=== PATIENT | female | born 1955 | race Caucasian/White ===

== ENCOUNTER 2019-09-24 13:44 | Outpatient (CLI) | payer MEDICARE, SELFPAY ==
[2019-09-24 14:58] LABS: Thyroid Stimulating Hormone 1.75 uIU/mL (0.36-3.74)
== END 2019-09-24 13:45 | disposition home or self-care (01) ==
PROVIDERS: PCP Physician Assistant
DX: E03.9 Hypothyroidism, unspecified (principal)
CPT/HCPCS: 36415; 84443

== ENCOUNTER 2019-12-16 16:17 | Outpatient (CLI) | payer MEDICARE, MEDICAID, SELFPAY ==
--- NOTE | ~2019-12-16 | XR_ITS ---
EXAMINATION: XR shoulder RT min 2V DATE: 12/16/2019 16:40 INDICATION: Right shoulder pain. TECHNIQUE: 4 views of right shoulder were obtained. COMPARISON: None. FINDINGS: Bone alignment is normal. No fracture. There is mild osteoarthritis of acromioclavicular eileen int and glenohumeral joint. There is mild calcific tendinitis of the rotator cuff. IMPRESSION: 1. Mild polyarticular osteoarthritis. 2. Mild calcific tendinitis of the rotator cuff. Reviewed, dictated and finalized at location A.
[2019-12-21 20:12] LABS: Vitamin D 25 Hydroxy 43 ng/mL (30-100)
== END 2019-12-16 16:18 | disposition home or self-care (01) ==
PROVIDERS: PCP Physician Assistant
DX: E55.9 Vitamin D deficiency, unspecified (principal); M25.511 Pain in right shoulder
CPT/HCPCS: 36415; 73030; 82306

== ENCOUNTER 2020-03-17 14:38 | Emergency (ER) | payer MEDICARE, MEDICAID, SELFPAY ==
--- NOTE | ~2020-03-17 | US_ITS ---
EXAMINATION: US art doppler w lalita LEPE EXAM DATE: 03/17/2020 16:04 INDICATION: Bilateral lower extremity pain, loss of pulses. TECHNIQUE: Segmental pressures and plethysmographic and Doppler waveforms of the brachial and lower e xtremity arteries were obtained. There is no prior study for comparison. FINDINGS: Right and left brachial artery pressures of 194 mm Hg and 176 mm Hg, respectively, are concordant (no rmal difference <= 30 mmHg). RIGHT LEG: The ankle-brachial index (JEFFREY) is 0.92 (normal >= 0.9-1). The great toe pressure 88 mmHg. The lower extremity ratios, segmental pressure gradients as follows; Dorsalis pedis: 0.92 (178 mmHg). Posterior tibial: 0.85 (164 mmHg). (Normal gradients <= 20-30 mmHg between adjacent levels on the same leg or the same levels on the two legs). Arterial waveforms are biphasic proximally, monophasic PT a nd DP.. LEFT LEG: The ankle-brachial index (JEFFREY) is 0.78 (normal >= 0.9-1). The great pressure could not be visualized, no definite pulse. The lower extremity ratios, segmental pressure gradients as follows; Dorsalis pedis: 0.78 (152 mmHg). Posterior tibial: 0.75 (145 mmHg). (Normal gradients <= 20-30 mmHg between adjacent levels on the same leg or the same levels on the two legs). Arterial waveforms are monophasic throughout. IMPRESSION: 1. Right ankle-brachial index 0.92, normal. 2. Left ankle-brachial index 0.78, mildly decreased. 3. Could not obtain definite pulse in left toe. Reviewed, dictated and finalized at location A. [facility] [employer]
[2020-03-17 15:10] VITALS: BP 147/77; PULSE 100; RESP 20; TEMP 36.8; O2SAT 95
[2020-03-17 16:07] LABS: Basophils Absolute Auto 0.06 K/mm3 (0.00-0.10); Basophils Percent Auto 0.4 % (0.0-1.0); Eosinophils Absolute Auto 0.07 K/mm3 (0.02-0.50); Eosinophils Percent Auto 0.4 % (1.0-6.0); Hematocrit 37.2 % (35.0-42.0); Hemoglobin 11.8 g/dL (11.7-13.8); Immature Granulocyte Absolute 0.07 K/mm3 (0.00-0.00); Immature Granulocyte Percent A 0.4 % (0.0-0.0); Lymphocytes Absolute Auto 2.08 K/mm3 (1.10-4.50); Lymphocytes Percent Auto 13.2 % (18.0-42.0); Mean Corpuscular HGB Conc 31.7 g/dL (32.0-36.0); Mean Corpuscular Volume 88.4 fL (78.0-102.0); Mean Platelet Volume 10.2 fl (9.2-11.8); Monocytes Absolute Auto 1.94 K/mm3 (0.10-0.90); Monocytes Percent Auto 12.3 % (2.0-11.0); Neutrophils Absolute Auto 11.6 K/mm3 (1.7-7.2); Neutrophils Percent Auto 73.3 % (50.0-70.0); Platelet Count Result 355 K/mm3 (150-420); Red Blood Count 4.21 M/mm3 (4.20-5.40); Red Cell Distribution Width 14.3 % (11.6-14.4); White Blood Count 15.8 K/mm3 (4.8-10.8)
[2020-03-17 16:28] LABS: Alanine Aminotransferase 29 U/L (14-59); Albumin Level 3.4 g/dL (3.4-5.0); Alkaline Phosphatase 151 U/L (46-116); Anion Gap 8 mmol/L (8-16); Aspartate Amino Transferase 17 U/L (15-37); Bilirubin,Total 0.3 mg/dL (0.00-1.00); Blood Urea Nitrogen 18 mg/dL (7-18); Calcium 9.2 mg/dL (8.5-10.1); Carbon Dioxide 26 mmol/L (21-32); Chloride 96 mmol/L (98-108); Estimated Glomerular Filt Rate 49; Glucose 261 mg/dL (70-99); INR 0.9; Osmolality Calculated 280 mOsm/kg (285-295); Partial Thromboplastin Time 28.2 SEC (23.90-30.70); Potassium 4.5 mmol/L (3.5-5.1); Prothrombin Time 10.3 Seconds (9.50-12.10); Sodium 130 mmol/L (136-145); Total Protein 8.3 g/dL (6.4-8.2)
[2020-03-17 16:31] LABS: D Dimer 1.13 mg/L (0.19-0.50)
--- NOTE | 2020-03-17 17:14 | PC.NURSE ---
PT ASKS FOR PAIN MEDICATION - TYLENOL OFFERED, PT DECLINED
[2020-03-17] MEDS: HEPARIN SODIUM 5,000 UNITS/ML VIAL 5000 UNITS IV PUSH (19:06)
[2020-03-17] MEDS: HEPARIN SOD/D5W 100 UNITS/ML 25,000 UNITS/250 ML BAG (19:07)
[2020-03-17] MEDS: MORPHINE SULFATE (*CRX) 2 MG/ML INJ IV PUSH (19:08)
[2020-03-17] MEDS: ONDANSETRON INJ 4 MG/2 ML VIAL IV PUSH (19:09)
--- NOTE | 2020-03-17 19:30 | PC.NURSE ---
CALL PLACED TO [facility] FOR POSSIBLE TRANSFER TO [facility] OR [facility] - REQUEST DECLINED THEY DO NOT HAVE A VASCULAR SURGEON THAT WILL COME IN FOR A TOE
--- NOTE | 2020-03-17 19:55 | PC.NURSE ---
[facility] CALLED FOR POSSIBLE TRANSFER
--- NOTE | 2020-03-17 20:35 | PC.NURSE ---
[facility] CALLS AND STATES WE NEED TO THINK ABOUT KEEPING THE PATIENT HERE TO GET HEPARIN INFUSION WE MAY NOT GET ANYONE TO ADMIT FOR A NON-EMERGENT TOE.
--- NOTE | 2020-03-17 21:17 | ED.EXTPRO ---
HPI - Extremity Problem General Chief complaint: Extremity Problem,Nontraumatic Stated complaint: 65yo FEMALE W/ known h.o DM here c/o 3 DAY H.O LEFT foot pain which has turned blue/purple. Related Data Home Medications Medication Instructions Recorded Confirmed budesonide [Rhinocort Allergy] 1 spray INTRANASAL DAILY 03/17/20 03/17/20 codeine-guaifenesin [Guaifenesin 10 ea PO PRN PRN 03/17/20 03/17/20 AC] empagliflozin [Jardiance] 10 mg PO QAM 03/17/20 03/17/20 fluoxetine 20 mg PO DAILY 03/17/20 03/17/20 fluticasone propionate 1 spray INTRANASAL DAILY 03/17/20 03/17/20 insulin lispro [Humalog Pen] 4 unit SUBCUT DAILY 03/17/20 03/17/20 levothyroxine 50 mcg PO DAILY 03/17/20 03/17/20 omeprazole 40 mg PO DAILY 03/17/20 03/17/20 tramadol 50 mg PO Q8-10H PRN 03/17/20 03/17/20 zolpidem 10 mg PO HS PRN 03/17/20 03/17/20 Allergies Allergy/AdvReac Type Severity Reaction Status Date / Time No Known Allergies Allergy Verified 03/17/20 15:44 Review of Systems Review of Systems: All systems reviewed & are unremarkable except as noted in HPI and below Constitutional: Constitutional: Reports no additional constitutional complaints Eyes: Eyes: Reports no additional eye complaints ENT: Reports system reviewed and no additional complaints, except as documented Cardiovascular: Cardiovascular: Reports no additional cardiovascular complaints Respiratory: Respiratory: Reports no additional respiratory complaints Gastrointestinal: Gastrointestinal: Reports no additional gastrointestinal complaints Genitourinary: Genitourinary: Reports no additional female genitourinary complaints Musculoskeletal: Comments: Left Foot pain w/ bluish discoloration, foot skin doesn't [place] and is very TTP. Integumentary/Breasts: Skin/Breast: Reports system reviewed and no additional complaints, except as docu Neurologic: Reports system reviewed and no additional complaints, except as documented, Reports focal weakness, Reports numbness and Reports weakness Psychiatric: Psychiatric: Reports no additional psychiatric complaints Endocrine: Endocrine: Reports no additional endocrine complaints Hematologic/Lymphatic: Hematologic/Lymphatic: Reports no additional hematologic/lymphatic complaints Allergic/Immunologic: Allergic/Immunologic: Reports no additional allergic/immunologic complaints [facility] Past Medical History Medical History COPD (chronic obstructive pulmonary disease) Depressed Diabetes mellitus GERD (gastroesophageal reflux disease) Insomnia Exam Const: General: no acute distress and alert Orientation/consciousness: patient oriented x3 HENMT: Head: normal to inspection Eyes: Conjunctivae: conjunctivae normal Pupils: Equal, round and reactive pupils present Neck: Neck: normal visual inspection Chest: Chest palpation & inspection: normal inspection of the chest Resp: Effort & Inspection: normal respiratory effort Cardio: Rate: regular rate Rhythm: regular rhythm GI: Inspection: non-distended GI Palp: Yes Soft to palpation and No Tenderness to palpation present (GI) Skin: Other: Left Foot bluish in color, no pulses palpable Neuro: General: patient oriented x3, moves all extremities and CN's II-XI intact bilaterally Extrem: Other: Cyanosis and TTP over distal aspect of left foot, decreased ROM, no pulses in Lower left foot Psych: Mental Status: mental status grossly normal Course Course Emergency Course: Patient with loss of pulses for 3 days will need to be evaluated by vascular surgery. Nursing called and spoke with multiple hospitals, no [facility] sx or beds available. [facility] called back. D/W Dr Feng ([facility]) at [facility]. He agrees with transfer to ER for evaluation. Vital Signs Vital signs: Vital Signs Temperature 98.2 F 03/17/20 15:10 Pulse Rate 100 03/17/20 15:10 Respiratory Rate 20 03/17/20 15:10 Blood Pressure
--- NOTE | 2020-03-17 21:44 | PC.NURSE ---
[facility] ACCEPTS PATIENT TO ER - REPORT CALLED TO SILVIA ESCALANTE - PT INFORMED THAT SHE MAY NEED TO FIND A RIDE HOME FROM [facility] ER
[2020-03-17 21:45] VITALS: BP 147/68; PULSE 94; O2SAT 98
[2020-03-17 21:58] LABS: Creatine Kinase 213 U/L (26-192)
== END 2020-03-17 22:00 | disposition short-term general hospital (02) ==
PROVIDERS: Emergency Provider Family Medicine; PCP Physician Assistant
DX: I77.9 Disorder of arteries and arterioles, unspecified (principal); E11.51 Type 2 diabetes mellitus with diabetic peripheral angiopathy without gangrene; R09.89 Other specified symptoms and signs involving the circulatory and respiratory systems; J44.9 Chronic obstructive pulmonary disease, unspecified; K21.9 Gastro-esophageal reflux disease without esophagitis; G47.00 Insomnia, unspecified; F32.9 Major depressive disorder, single episode, unspecified; Z79.4 Long term (current) use of insulin
CPT/HCPCS: 36415; 80053; 82550; 85025; 85380; 85610; 85730; 93923; 96365; 96366; 96375; 99283; 99285; J1644; J2270; J2405